=== PATIENT | male | born 1970 | race Caucasian/White ===

== ENCOUNTER 2018-10-03 16:42 | Emergency (ER) | payer MEDICARE, BC ==
[~2018-10-03] VITALS: Ht 182.9 cm; Wt 81.8 kg
[2018-10-03 16:49] VITALS: TEMP 97
[2018-10-03 20:38] VITALS: BP 118/68; PULSE 104
== END 2018-10-03 20:38 | disposition home or self-care (01) ==
LOC: COL.ER 16:42
DX: S83.92XA Sprain of unspecified site of left knee, initial encounter (principal); G40.909 Epilepsy, unspecified, not intractable, without status epilepticus; W19.XXXA Unspecified fall, initial encounter

== ENCOUNTER 2018-10-06 12:26 | Inpatient (IN) | payer MEDICARE, BC ==
[~2018-10-06] VITALS: Ht 182.9 cm; Wt 98.6 kg
[2018-10-06 13:48] LABS: ACETAMINOPHEN < 10 ug/mL (10-30); ALANINE AMINOTRANSFERASE 202 U/L (21-72); ALBUMIN 3.9 gm/dL (3.5-5.0); ALCOHOL(ethanol),MEDICAL < 10 mg/dL; ALKALINE PHOSPHATASE 140 U/L (50-136); ANION GAP 16 mmol/L (7-16); BILIRUBIN,TOTAL 0.5 mg/dL (0.0-1.0); BLOOD UREA NITROGEN 60 mg/dL (9-20); CALCIUM 8.9 mg/dL (8.4-10.2); CARBON DIOXIDE 19 mmol/L (22-30); CHLORIDE 104 mmol/L (98-107); CREATININE, serum 7.21 (0.66-1.25); GLUCOSE 133 mg/dL (74-106); POTASSIUM 4.5 mmol/L (3.4-5.0); SALICYLATE < 1.0 mg/dL; SODIUM 139 mmol/L (137-145); TOTAL PROTEIN 7.7 gm/dL (6.4-8.2)
[2018-10-06 14:03] LABS: PROLACTIN 11.6 ng/mL (3.7-17.9)
[2018-10-06] MEDS ORDERED: LAMICTAL 100MG100 MG PO ×3 (14:03→16:26)
[2018-10-06] MEDS ORDERED: PAXIL40 MG PO (14:04)
[2018-10-06] MEDS ORDERED: FLONASE NASAL S16 GM NS (14:04)
[2018-10-06] MEDS ORDERED: KEPPRA750 MG PO ×3 (14:04→16:10)
[2018-10-06] MEDS ORDERED: CARBATROL200 MG PO ×4 (14:04→16:09)
[2018-10-06 14:25] LABS: BASO % 0.3 % (0.0-2.0); EOS # 0.1 (0.0-0.7); EOS % 0.9 % (0-4.0); GRAN # 9.9 (1.4-6.5); GRAN % 85.2 % (42.2-75.2); HEMATOCRIT 39.7 % (42.0-52.0); HEMOGLOBIN 13.4 g/dl (13.5-18.0); LYMPH # 0.7 (1.2-3.4); LYMPH % 5.8 % (20.0-51.0); MEAN CELL VOLUME 96 fl (80.0-100.0); MEAN CORPUSCULAR HEMOGLOBIN 32 pg (27.0-31.0); MEAN CORPUSCULAR HGB CONC 34 g/dl (33.0-37.0); MEAN PLATELET VOLUME 9.2 fl (7.4-10.4); MONO # 0.9 (0.1-0.6); MONO % 7.4 % (1.7-9.3); PLATELET COUNT 277 K/mm3 (130-400); RED BLOOD COUNT 4.15 M/mm3 (4.20-5.60)
[2018-10-06] MEDS ORDERED: LAMICTAL150 MG PO (16:07)
[2018-10-06] MEDS ORDERED: CLARITIN 1010 MG/TAB PO (16:13)
--- NOTE | 2018-10-06 16:45 | NUR ---
Pt arrived to the floor from ER. Pt transfered from to his bed w/ on assist. Pt alert and oriented and c/o L knee pain. Pt and family oriented to , call light button, rm service, and bed button. Call light in reach.
[2018-10-06 17:06] VITALS: BP 143/81; PULSE 83; TEMP 98.3
[2018-10-06 17:39] LABS: PHOSPHOROUS 6.3 mg/dL (2.5-4.5)
[2018-10-06 17:49] LABS: COLLECTION METHOD CLEAN CATCH
[2018-10-06 18:10] LABS: TRICYCLIC ANTIDEPRESS URINE NEGATIVE
[2018-10-06 18:17] LABS: AMORPHOUS CRYSTAL Present /uL; MUCOUS Present /lpf; PH 5 (5-8); SQUAMOUS EPITHELIAL 0-2 /hpf; URINE APPEARANCE Hazy; URINE BACTERIA Rare /hpf; URINE BILIRUBIN Negative (NEGATIVE); URINE BLOOD 3+ (NEGATIVE); URINE COLOR Yellow; URINE GLUCOSE Negative (NEGATIVE); URINE KETONE Negative (NEGATIVE); URINE LEUKOCYTE ESTERASE Negative (NEGATIVE); URINE NITRATE Negative (NEGATIVE); URINE PROTEIN(semi-quant) 2+ (NEGATIVE); URINE UROBILINOGEN Negative (NEGATIVE)
[2018-10-06 18:20] LABS: URINE PROTEIN:CREAT RATIO 0.89 (0.00-0.14)
--- NOTE | 2018-10-06 18:28 | NUR ---
Pt finished dinner in bed and resting. No concern. Call light in reach. Pt's dad in visiting.
[2018-10-06 19:44] VITALS: BP 125/80; PULSE 80; TEMP 98.3
--- NOTE | 2018-10-06 20:22 | NUR ---
PT IN BED WITH HOB ELEVATED TO 45 DEGREE ANGLE. PT DENIES PAIN OR DISCOMFORT. PT HAS A HARD TIME ANSWERING, BUT DOES ANSWER QUESTIONS APPROPREATELY. PT HAS FAMILY BY SIDE. NO NEEDS AT THIS TIME, CALL LIGHT WITHIN REACH.
--- NOTE | 2018-10-06 20:45 | NUR ---
PT'S FAMILY ADVISES THAT PT HAS SEIZURES NORMALLY AT NIGHT THAT LAST ABOUT 8 TO 10 MINUTES. ALSO, HE HAS NOT HAD ONE FOR A COUPLE OF MONTHS.
[2018-10-06 23:38] VITALS: BP 127/66; PULSE 69; TEMP 98.2
[2018-10-06 23:44] VITALS: BP 139/83; PULSE 86; TEMP 98.1
[2018-10-07 03:31] VITALS: BP 135/82; PULSE 91; TEMP 98.4
--- NOTE | 2018-10-07 04:38 | NUR ---
UNEVENTFUL NIGHT, PT SLEEPING/RESTING WELL. PT DOES WAKE UP WHEN AWOKEN AND DENIES PAIN OR DISCOMFORT AND NO NEEDS. CALL LIGHT WITHIN REACH.
--- NOTE | 2018-10-07 07:28 | NUR ---
DR. ROLLE NOTIFIED OF CONSULT.
[2018-10-07 07:37] VITALS: BP 145/89; PULSE 98; TEMP 98.5
--- NOTE | 2018-10-07 07:39 | NUR ---
Received report, went to meet patient and he is observed to have eyes closed. Respirations are even and nonlabored. New bag NS administered. Mcclure is to dependent drain, some sediment is noted in tubing. Call light and personal belongings are within reach.
[2018-10-07 08:00] LABS: BASO % 0.4 % (0.0-2.0); EOS # 0.2 (0.0-0.7); EOS % 2.3 % (0-4.0); GRAN # 5.5 (1.4-6.5); GRAN % 77.1 % (42.2-75.2); LYMPH # 0.8 (1.2-3.4); LYMPH % 11.9 % (20.0-51.0); MEAN CELL VOLUME 96 fl (80.0-100.0); MEAN CORPUSCULAR HGB CONC 33 g/dl (33.0-37.0); MEAN PLATELET VOLUME 9.1 fl (7.4-10.4); MONO # 0.6 (0.1-0.6); MONO % 7.9 % (1.7-9.3); PLATELET COUNT 227 K/mm3 (130-400); RED BLOOD COUNT 3.49 M/mm3 (4.20-5.60); REDCELL DISTRIBUTION WIDTH-CV 13.2 % (11.5-14.5)
[2018-10-07 08:02] LABS: HEMATOCRIT 33.6 % (42.0-52.0); HEMOGLOBIN 11.1 g/dl (13.5-18.0); MEAN CORPUSCULAR HEMOGLOBIN 32 pg (27.0-31.0)
[2018-10-07 08:14] LABS: CALCIUM 7.9 mg/dL (8.4-10.2); MAGNESIUM 2.6 mg/dL (1.6-2.3); PHOSPHOROUS 6.1 mg/dL (2.5-4.5); POTASSIUM 4.3 mmol/L (3.4-5.0)
[2018-10-07 08:20] LABS: CREATININE, serum 7.42 (0.66-1.25)
[2018-10-07 11:14] VITALS: BP 143/87; PULSE 94; TEMP 98.9
--- NOTE | 2018-10-07 13:30 | NUR ---
Patient lives at home with his parents (Stephanie and Deandre) in [place], [place] and plans to discharge back home upon recovery. Patient has a development delay and receives support from his parents for daily activities as needed. Patient does not typically use durable medical equipment yet recently he has had recent knee pains. Patient's primary care physician is Dr. Hayder Yates, his pharmacy is [facility], and he does not have advance directives for healthcare on file at this time. food services manager will follow this patient as needed.
[2018-10-07 15:42] VITALS: BP 145/91; PULSE 89; TEMP 99.5
--- NOTE | 2018-10-07 18:52 | NUR ---
Patient in bed with head elevated watching TV. Parents are at bedside. Call light and personal items are within reach. Urine color is clearing. Dr. Price notified.
[2018-10-07 19:34] VITALS: BP 139/82; PULSE 95; TEMP 97.4
--- NOTE | 2018-10-07 20:00 | NUR ---
PT IN BED WITH HOB ELEVATED TO 45 DEGREE ANGLE. DENIES PAIN OR DISCOMFORT. PT'S URINE IS YELLOW WITH SOME SEDIMENT. PT HAS NO NEEDS AT THIS TIME, CALL LIGHT WITHIN REACH.
[2018-10-07 23:45] VITALS: BP 151/88; PULSE 104; TEMP 98.7
--- NOTE | 2018-10-08 02:50 | NUR ---
PT SLEEPING/RESTING WITH NO S/S OF PAIN OR DISCOMFORT NOTED. CALL LIGHT WITHIN REACH.
[2018-10-08 04:34] VITALS: BP 137/86; PULSE 105; TEMP 99.2
--- NOTE | 2018-10-08 05:44 | NUR ---
PT IN BED WITH HOB ELEVATED AT 45 DEGREE ANGLE. PT SLEEPING/RESTING, BUT EASILY AWAKENS AND GOES BACK TO SLEEP. PT DENIES PAIN OR DISCOMFORT OR ANY NEEDS. CALL LIGHT WITHIN REACH.
[2018-10-08 06:58] LABS: BASO % 0.4 % (0.0-2.0); EOS # 0.1 (0.0-0.7); EOS % 1.5 % (0-4.0); GRAN # 6.7 (1.4-6.5); GRAN % 81.3 % (42.2-75.2); HEMOGLOBIN 11.2 g/dl (13.5-18.0); LYMPH # 0.6 (1.2-3.4); LYMPH % 6.8 % (20.0-51.0); MEAN CELL VOLUME 95 fl (80.0-100.0); MEAN CORPUSCULAR HEMOGLOBIN 32 pg (27.0-31.0); MEAN CORPUSCULAR HGB CONC 34 g/dl (33.0-37.0); MEAN PLATELET VOLUME 9.1 fl (7.4-10.4); MONO # 0.8 (0.1-0.6); MONO % 9.6 % (1.7-9.3); PLATELET COUNT 250 K/mm3 (130-400); RED BLOOD COUNT 3.51 M/mm3 (4.20-5.60); REDCELL DISTRIBUTION WIDTH-CV 13.1 % (11.5-14.5)
[2018-10-08 07:02] LABS: HEMATOCRIT 33.3 % (42.0-52.0)
--- NOTE | 2018-10-08 07:04 | NUR ---
Received report, patient is resting in bed. Mcclure is to dependent drainage, respirations are even and nonlabored. Is currently having EEG at this time.
[2018-10-08 07:12] LABS: ALBUMIN 2.9 gm/dL (3.5-5.0); BILIRUBIN,TOTAL 0.4 mg/dL (0.0-1.0); CALCIUM 7.8 mg/dL (8.4-10.2); PHOSPHOROUS 5.6 mg/dL (2.5-4.5); TOTAL PROTEIN 6.1 gm/dL (6.4-8.2)
[2018-10-08 07:15] LABS: CREATININE, serum 7.81 (0.66-1.25)
[2018-10-08 07:25] LABS: CARBAMAZEPINE (TEGRETOL) 11.3 ug/mL (4.0-12.0)
[2018-10-08 08:09] VITALS: BP 145/85; PULSE 103; TEMP 100.2
--- NOTE | 2018-10-08 09:15 | NUR ---
Patient is very drowsy, mouth breathing and snoring. Father is concerned and states he never mouth breathes or snores. Spoke with provider and they were to visit patient. Dr. White saw patient and requested to speak with nephrology right away. Call placed to Dr. Price who spoke with Dr. White and Dr. Cabrera. Ativan decreased as it was felt as if she was overmedicated. Order placed for IV lasix and tylenol dose changed to be 12 hours apart.
[2018-10-08 12:16] VITALS: BP 144/94; PULSE 98; TEMP 98.3
--- NOTE | 2018-10-08 13:30 | NUR ---
Patient remains sleepy, respirations are even and non labored. Mcclure is to dependent drain, family remains at bedside. Has relaxed facial expression.
[2018-10-08 15:40] VITALS: BP 135/83; PULSE 91; TEMP 97.6
--- NOTE | 2018-10-08 18:34 | NUR ---
Patient is awake and alert now, did take medication and ate some pudding. Offered a pepsi. Urine output has greatly improved since IV lasix. Has no pain and no complaints. Mother remains at bedside. Call light and personal itmes are in reach.
[2018-10-08 20:03] VITALS: BP 138/86; PULSE 95; TEMP 98.4
[2018-10-09] VITALS (7 sets, daily range): BP systolic 123–166; BP diastolic 68–95; PULSE 86–107; TEMP 97.8–99.4
--- NOTE | 2018-10-09 00:15 | NUR ---
Patient assessed around 2009. Denies having pain and discomfort. Peripheral IV to right hand, NS running at 100 ml/hr. Site is without redness, warmth, swelling, and pain. Denies having SOB and dyspnea. On oxygen at 4 L/min via NC. LS CTA in upper lobes, diminished in lower. HRR. LS CTA. BSAx4. Indwelling alonso catheter patent, and draining clear yellow urine via dependent drainage. Scabbing to left knee. Site is without redness, warmth, swelling, drainage, and pain. 1+ edema BLE. Denies having any questsions, needs, or concerns. Call light within reach.
--- NOTE | 2018-10-09 02:49 | NUR ---
Patient has been resting in bed with eyes closed. Voices no needs or concerns. Call light is within reach. Indwelling alonso catheter continues to have clear yellow urine via dependent drainage.
--- NOTE | 2018-10-09 06:14 | NUR ---
Patient has been resting in bed, easily awakened throughout the night when checking on patient. NS continues to run at 100 mls/hr per orders. Denies having pain and discomfort. Indwelling alonso catheter draining yellow, cloudy urine via dependent drainage. Resting in bed with eyes closed at this time. Call light is within reach.
[2018-10-09 06:52] LABS: BASO % 0.3 % (0.0-2.0); EOS # 0.2 (0.0-0.7); EOS % 1.8 % (0-4.0); GRAN # 7.5 (1.4-6.5); GRAN % 80.4 % (42.2-75.2); HEMOGLOBIN 11.4 g/dl (13.5-18.0); LYMPH # 0.6 (1.2-3.4); LYMPH % 6.8 % (20.0-51.0); MEAN CELL VOLUME 96 fl (80.0-100.0); MEAN CORPUSCULAR HEMOGLOBIN 33 pg (27.0-31.0); MEAN CORPUSCULAR HGB CONC 34 g/dl (33.0-37.0); MEAN PLATELET VOLUME 9.1 fl (7.4-10.4); MONO # 0.9 (0.1-0.6); MONO % 9.7 % (1.7-9.3); PLATELET COUNT 262 K/mm3 (130-400); RED BLOOD COUNT 3.51 M/mm3 (4.20-5.60); REDCELL DISTRIBUTION WIDTH-CV 13.2 % (11.5-14.5)
[2018-10-09 06:55] LABS: BILIRUBIN,TOTAL 0.4 mg/dL (0.0-1.0); CALCIUM 8.3 mg/dL (8.4-10.2); POTASSIUM 3.9 mmol/L (3.4-5.0); TOTAL PROTEIN 6.4 gm/dL (6.4-8.2)
[2018-10-09 06:57] LABS: CREATININE, serum 7.53 (0.66-1.25)
--- NOTE | 2018-10-09 07:22 | NUR ---
Report given to day shift nurse.
[2018-10-09 07:25] LABS: HEMATOCRIT 33.7 % (42.0-52.0)
--- NOTE | 2018-10-09 10:19 | NUR ---
Assessment complete.patient awake,a/ox3.denies apin or discomfort at this time.breathing even and unlabored.bilat lungs bases diminished.upper lobes clear bilat.oxygen decreased from 4L/nc to 3L/NC.patient remains on seizure precautions.ivf infusing.alonso catheter draining adequately.family at bedside.rechecked temp was 97.8.no other needs voiced at this time.will continue to monitor.
[2018-10-09 14:51] LABS: LEVETIRACETAM 37.2 mcg/mL (())
--- NOTE | 2018-10-09 16:09 | NUR ---
FRAN met with the patient and patient's father, Deandre, to review discharge plan and discuss therapies recommendation of post-acute rehab. The patient's father reports that they are interested and agreeable to post-acute rehab. FRAN discussed options and presented the patient choice form to the patient's father. The patient's father preferred 1) [facility] 2) [facility]. Patient choice form signed by the patient's father and he was provided a copy. FRAN consulted IPR Director, Puja. FRAN contacted and faxed a referral to [facility]. SW awaiting their screenings.
--- NOTE | 2018-10-09 18:02 | NUR ---
PATIENT HAS HAD AN UNEVENTFUL DAY.PATIENT SITTING UP IN RECLINER AT THIS TIME.OXYGEN AT 4L/NC.PT HAD A DOSE OF LASIX TODAY.CONTINUES TO HAVE GOOD URINE OUTPUT.CREATININE STILL ELEVATED.DENIES FUTHER NEEDS AT THIS TIME.CALL LIGHT IN REACH
--- NOTE | 2018-10-09 18:56 | NUR ---
REPORT GIVEN TO TAMARA ESCOBAR.
--- NOTE | 2018-10-09 21:31 | NUR ---
Patient assessed around 1914. Was sitting up in recliner at that time. Denied having pain and discomfort. Peripheral INT to right hand flushed. Site without redness, warmth, swelling, and pain. On oxygen at 3 L/min via NC. Denied having SOB and dyspnea. LS diminished. HRR. BSAx4. Generalized edema. 1+ BUE, 2+ BLE. At approximately 1999, this nurse was called to patient room, parents stated that patient was having seizure activity. VS: 98.2 100 18 152/94 91% on 3 L/min via NC. Patient shaking. Pupils round, and react equally and immediately to light. Given IV Keppra per orders. At approximately 2014, patient was no longer shaking, but getting very sleepy. Transferred into bed with two assist with gait belt and walker. Assisted to laying position. Oxygn level 85%. Increased to 87%. Increased oxygen to 4 L/min via NC. Oxygen increased to 88%. VS: 176/96 113. Increased oxygen to 4.5 L/min via oxymask. VS at 2029: 98.0 92 18 161/96 94% on oxymask at 4.5 L/min via oxymask. RT notified. Resting in bed with eyes closed at this time. Call light is within reach.
[2018-10-10] VITALS (7 sets, daily range): BP systolic 130–144; BP diastolic 80–89; PULSE 67–101; TEMP 97.7–98.8
[2018-10-10 06:59] LABS: BASO % 0.4 % (0.0-2.0); EOS # 0.3 (0.0-0.7); EOS % 3.1 % (0-4.0); GRAN # 6.1 (1.4-6.5); GRAN % 75.3 % (42.2-75.2); LYMPH # 0.8 (1.2-3.4); LYMPH % 10.1 % (20.0-51.0); MEAN CELL VOLUME 96 fl (80.0-100.0); MEAN CORPUSCULAR HEMOGLOBIN 32 pg (27.0-31.0); MEAN CORPUSCULAR HGB CONC 34 g/dl (33.0-37.0); MEAN PLATELET VOLUME 9.1 fl (7.4-10.4); MONO # 0.8 (0.1-0.6); MONO % 10.2 % (1.7-9.3); PLATELET COUNT 297 K/mm3 (130-400); RED BLOOD COUNT 3.42 M/mm3 (4.20-5.60); REDCELL DISTRIBUTION WIDTH-CV 13.2 % (11.5-14.5)
[2018-10-10 07:09] LABS: HEMATOCRIT 32.7 % (42.0-52.0)
[2018-10-10 07:15] LABS: ALBUMIN 3.1 gm/dL (3.5-5.0); BILIRUBIN,TOTAL 0.4 mg/dL (0.0-1.0); CALCIUM 8.9 mg/dL (8.4-10.2); MAGNESIUM 2.1 mg/dL (1.6-2.3); PHOSPHOROUS 5.6 mg/dL (2.5-4.5); POTASSIUM 3.5 mmol/L (3.4-5.0); TOTAL PROTEIN 6.6 gm/dL (6.4-8.2)
[2018-10-10 07:16] LABS: CREATININE, serum 6.69 (0.66-1.25)
--- NOTE | 2018-10-10 08:16 | NUR ---
Assessment complete.patient awake,a/ox3.denies pain or discomfort at this time.breathing even and unlabored.Lung sounds diminished to bilat lung bases.oxygen at 4l/nc and sats at 95%.VSS.all meds given.patient has a alonso to dependent drainage.good urine output.creatinine trending down today.no other needs voiced at this time.will continue to monitor.call light in reach
--- NOTE | 2018-10-10 11:16 | NUR ---
[facility] reports acceptance; patients' second choice, awaiting IPR screen
--- NOTE | 2018-10-10 18:46 | NUR ---
PT RESTING IN BED AT THIS TIME.HALL CATHETER DISCONTINUED.OXYGEN REMAINS AT 4L/NC.FAMILY AT BEDSIDE.CALL LIGHT IN REACH
[2018-10-10 19:00] LABS: LEVETIRACETAM 106.7 mcg/mL (())
--- NOTE | 2018-10-10 19:25 | NUR ---
REPORT GIVEN TO TAMARA ELIZABETH.
--- NOTE | 2018-10-10 22:05 | NUR ---
Resting in recliner. Assessment complete. Lungs diminshed throughout. Denies shortness of breath. Heart sounds normal. Bowels active x4. Pulses strong throughout. Bilateral lower leg edema +1. Right hip bruising present. Denies pain at this time. Ambulated to restroom with walker and gait belt x1 assist. Denies other needs at this time. Call light in reach.
--- NOTE | 2018-10-10 23:37 | NUR ---
Resting in bed. Denies needs. Call light in reach.
--- NOTE | 2018-10-11 02:10 | NUR ---
Up to restroom and returned to bed. Denies other needs. Call light in reach.
[2018-10-11 03:28] VITALS: BP 161/82; PULSE 93; TEMP 97.5
--- NOTE | 2018-10-11 04:27 | NUR ---
Resting in bed. Denies needs. Call light in reach.
[2018-10-11 05:17] VITALS: BP 154/90
--- NOTE | 2018-10-11 06:58 | NUR ---
Patient had uneventful night. Resting in bed this AM. Report given to TAMARA Hoskins
[2018-10-11 07:23] VITALS: BP 135/76; PULSE 87; TEMP 97.6
[2018-10-11 07:32] LABS: BASO % 0.6 % (0.0-2.0); EOS # 0.4 (0.0-0.7); EOS % 6.6 % (0-4.0); GRAN # 4.7 (1.4-6.5); GRAN % 71.3 % (42.2-75.2); LYMPH # 0.7 (1.2-3.4); LYMPH % 10.1 % (20.0-51.0); MEAN CELL VOLUME 94 fl (80.0-100.0); MEAN CORPUSCULAR HEMOGLOBIN 32 pg (27.0-31.0); MEAN CORPUSCULAR HGB CONC 34 g/dl (33.0-37.0); MONO # 0.7 (0.1-0.6); MONO % 10.5 % (1.7-9.3); PLATELET COUNT 347 K/mm3 (130-400); RED BLOOD COUNT 3.42 M/mm3 (4.20-5.60)
[2018-10-11 07:38] LABS: HEMATOCRIT 32.1 % (42.0-52.0)
[2018-10-11 07:50] LABS: ALBUMIN 3.1 gm/dL (3.5-5.0); BILIRUBIN,TOTAL 0.5 mg/dL (0.0-1.0); MAGNESIUM 1.9 mg/dL (1.6-2.3); POTASSIUM 3.1 mmol/L (3.4-5.0); TOTAL PROTEIN 6.6 gm/dL (6.4-8.2)
[2018-10-11 08:05] LABS: CREATININE, serum 5.02 (0.66-1.25)
--- NOTE | 2018-10-11 08:19 | NUR ---
Assessment complete.patient awake,a/ox3.denies pain or discomfort at this time.breathing even and unlabored.oxygen at 4L/NC.pulses palpable,turner in equal,abd sounds present and audible.creatinine trending down.remains on seizure precautions.family at bedside.will continue to monitor.call light in reach
--- NOTE | 2018-10-11 11:15 | NUR ---
Puja, [facility] Director, reports that they can accept the patient. The patient is to discharge today, 10/11, to [facility] [facility]. SW updated Joe at [facility]. No additional needs at this time.
[2018-10-11] MEDS ORDERED: TEGRETOL 2200 MG/TA1 PO ×3 (11:19→11:20)
[2018-10-11] MEDS ORDERED: TYLENOL 325MG325 MG PO (11:19)
[2018-10-11] MEDS ORDERED: LAMICTAL 25MG T25 MG PO (11:21)
[2018-10-11] MEDS ORDERED: LAMICTAL200 MG PO (11:21)
[2018-10-11] MEDS ORDERED: ATIVAN 2MG/ML2 MG/ML IM (11:22)
[2018-10-11] MEDS ORDERED: KEPPRA 500MG500 MG PO (11:22)
--- NOTE | 2018-10-11 11:27 | NUR ---
AND TEAM ROUNDED ON PATIENT.PATIENT OKAY WITH TRANSFERING TO [facility]. THIS RN BEGAN WEANING PT OFF OXYGEN.AT 3 HE WAS 97%,AT 2 HE WAS 96-97%.AND AT 1L/NC HE WAS STABLE AT 96%.THIS RN TOOK PATIENT'S OXYGEN OFF AND SATS ARE 94-95% ON RA.WILL CONTINUE TO MONITOR OXYGEN.CALL LIGHT IN REACH
--- NOTE | 2018-10-11 12:21 | NUR ---
OXYGEN REMAIN STABLE AT 98% ON RA.PATIENT TO DISCHARGE TO INPATIENT REHAB.
[2018-10-11 12:40] VITALS: BP 133/77; PULSE 84; TEMP 98.6
--- NOTE | 2018-10-11 13:38 | NUR ---
REPORT GIVEN TO TAMARA DAVIS ON IPR.IV AND TELEMETRY DISCONTINUED.PATIENT WILL BE TRANSPORTED BY STAFF TO [facility] ON IPR.NO NEEDS VOICED AT THIS TIME.CALL LIGHT IN REACH
--- NOTE | 2018-10-11 13:40 | NUR ---
PT REMAINS ON ROOM AIR UPON DISCHARGE.DENIES SOB.SATS STABLE.
[2018-10-11] MEDS ORDERED: HEPARIN SOD5000 U/ML SQ (15:09)
[2018-10-11] MEDS ORDERED: FLONASEALLERGY NS (20:37)
[2018-10-11] MEDS ORDERED: MULTI VITAMINS1 TAB PO (20:38)
== END 2018-10-11 13:41 | DRG 682 ==
LOC: COL.ER 12:26 → MEDICAL 14:24
PROVIDERS: Emergency Medicine; Nurse Practitioner Family; Physician Assistant; Psychiatry & Neurology Neurology; ADMIT Family Medicine
DX: N17.9 Acute kidney failure, unspecified (principal); J96.01 Acute respiratory failure with hypoxia; M62.82 Rhabdomyolysis; G40.209 Localization-related (focal) (partial) symptomatic epilepsy and epileptic syndromes with complex partial seizures, not intractable, without status epilepticus; E87.2 Acidosis; E86.0 Dehydration; F42.9 Obsessive-compulsive disorder, unspecified; J30.1 Allergic rhinitis due to pollen; R62.50 Unspecified lack of expected normal physiological development in childhood; E83.39 Other disorders of phosphorus metabolism; E87.6 Hypokalemia; S83.005D Unspecified dislocation of left patella, subsequent encounter; W18.39XD Other fall on same level, subsequent encounter; E87.79 Other fluid overload
CPT/HCPCS: 99222-AI; 99232-AI; 99233-AI; 99239; J1644; J1940; J1953; J7030

== ENCOUNTER 2018-10-11 13:11 | Inpatient (IN) | payer MEDICARE, BC ==
[~2018-10-11] VITALS: Ht 182.9 cm; Wt 89.8 kg
[~2018-10-11 13:11] MED LIST: ATIVAN 2MG/ML2 MG/ML IM; CARBATROL200 MG PO; CLARITIN 1010 MG/TAB PO; FLONASE NASAL S16 GM NS; KEPPRA 500MG500 MG PO; KEPPRA750 MG PO; LAMICTAL 100MG100 MG PO; LAMICTAL 25MG T25 MG PO; LAMICTAL150 MG PO; LAMICTAL200 MG PO; PAXIL40 MG PO; TEGRETOL 2200 MG/TA1 PO; TYLENOL 325MG325 MG PO
--- NOTE | 2018-10-11 13:40 | NUR ---
Received report from [facility] RN.
--- NOTE | 2018-10-11 13:48 | NUR ---
OSCAR José aware of admission processed.
--- NOTE | 2018-10-11 14:37 | NUR ---
Greeted pt in [place] as OT brought over to IPR.
[2018-10-11] MEDS ORDERED: HEPARIN SOD5000 U/ML SQ (15:09)
--- NOTE | 2018-10-11 15:18 | NUR ---
Pt yousuf barker with walker with therapy
[2018-10-11 17:36] VITALS: BP 157/85; PULSE 81; TEMP 81
[2018-10-11 17:39] VITALS: BP 157/85; PULSE 80; TEMP 98.5
--- NOTE | 2018-10-11 19:45 | NUR ---
PT SITTING IN RECLINER. WATCHING BASEBALL ON TV WITH FATHER. PT PLEASANT CALM AND COOPERATIVE. SPEECH SL DIFFICULT TO UNDERSTAND. CALL LIGHT IN REACH. CHAIR ALARM ON. NO NEEDS AT THIS TIME.
--- NOTE | 2018-10-11 20:30 | NUR ---
Report to TAMARA Grossman. Pt's mom Stephanie was here this carlo, now his dad, Deandre here. Pt in recliner with feet up, call lt in reach, reviewed IPR POC and routine. Pt and parents verbalized understanding. Denied any needs at this time, denied pain.
[2018-10-11] MEDS ORDERED: FLONASEALLERGY NS (20:37)
[2018-10-11] MEDS ORDERED: MULTI VITAMINS1 TAB PO (20:38)
--- NOTE | 2018-10-11 23:57 | NUR ---
O2 SAT SPOT CHECK 90% ON RA. PLACED PT ON 1L O2 NC AND NOTIFIED RT.
[2018-10-12 04:49] VITALS: BP 137/79; PULSE 91; TEMP 98.1
[2018-10-12 07:13] LABS: ALBUMIN 2.9 gm/dL (3.5-5.0); BILIRUBIN,TOTAL 0.4 mg/dL (0.0-1.0); CALCIUM 9.1 mg/dL (8.4-10.2); CREATININE, serum 3.37 (0.66-1.25); MAGNESIUM 1.8 mg/dL (1.6-2.3); PHOSPHOROUS 3.9 mg/dL (2.5-4.5); POTASSIUM 3.5 mmol/L (3.4-5.0); TOTAL PROTEIN 6.3 gm/dL (6.4-8.2)
--- NOTE | 2018-10-12 08:12 | NUR ---
Assessment completed, alert/oriented and cooperative, vital signs have been stalbe/ HTN and physician is aware, denies pain this morning, sitting up in chair and finishing his breakfast, has taken his a.m. meds, I have taken him back off oxygen and sats 92-94% room air, he is going to work with PT at this time
--- NOTE | 2018-10-12 10:17 | NUR ---
Initial visit; Patient and his Dad thanked for looking in on Mark and wishing him well.
[2018-10-12 18:28] VITALS: BP 135/76; PULSE 85; TEMP 97.8
--- NOTE | 2018-10-12 19:00 | NUR ---
SHIFT REPORT OBTAINED FROM DAVIN GOODWIN. UNREMARKABLE DAY.
--- NOTE | 2018-10-12 19:15 | NUR ---
PT SITTING UP IN RECLINER WATCHING BASEBALL ON TV. CHEERFUL. DENIES NEEDS AT THIS TIME. CALL LIGHT IN REACH. CHAIR ALARM SET.
--- NOTE | 2018-10-12 20:45 | NUR ---
PARENTS HERE VISITING. VERY SUPPORTIVE. ASSISTED PT TO BR WITH WALKER. STRONGER BUT STILL UNSTEADY. NEEDS CUED FOR SAFETY AND USE OF WALKER. READY FOR BED. CALL LIGHT IN REACH. BED ALARM SET . SEIZURE PRECAUTIONS CONTINUED. NO SEIZURE ACTIVITY NOTED.
[2018-10-13 04:04] VITALS: BP 149/85; PULSE 90; TEMP 98.9
--- NOTE | 2018-10-13 05:54 | NUR ---
ASSISTED TO BR. DROWSY. SL UNSTEADY GAIT. NEEDED CUES FOR SAFETY. PLEASNAT AND COOPERATIVE. LLE +2 EDEMATOUS. PEDAL PULSES PRESENT. LT KNEE ABRASION/ LG SCABBED AREA CD&I. PLACED X2 LG BANDAIDS TO PROTECT SCABS. ENC PT TO ELEVATE LLE ESPECIALLY WHEN UP IN RECLINER TODAY. NOTED NO BM FOR SEVERAL DAYS. GAVE SENOKOT. SEE JUN.
--- NOTE | 2018-10-13 08:13 | NUR ---
Report from TAMARA Grossman. Pt ate breakfast in chair, glasses and yellow gripper socks in place. Denies pain. Oral cares brought to tray. Amb with walker and gait belt.
--- NOTE | 2018-10-13 10:09 | NUR ---
Pt attended group, family visiting.
--- NOTE | 2018-10-13 11:41 | NUR ---
Gave rehab cocktail
--- NOTE | 2018-10-13 14:56 | NUR ---
FRAN met with the patient and his mom Stephanie. The pt lives in [place] with his parents. The pt does not have DME and is independent with ADLs. The pt's PCP is Dr. Bee at [facility]. The pt receives his medications from [facility]. The pt does not have difficulties obtaining his medications. The pt does not have advanced directives in the EMR and was not interested in obtaining a DPOA-HC form at this time. The pt is to return home upon discharge. FRAN will continue to follow for discharge recommendations and assist if needed.
[2018-10-13 16:38] VITALS: BP 142/84; PULSE 87; TEMP 98.6
--- NOTE | 2018-10-13 17:38 | NUR ---
Pt denies pain, nor need to toilet, enc feet up in recliner, alarm on, call lt in reach, watching TV, glasses and yellow grippers in place.
--- NOTE | 2018-10-13 20:28 | NUR ---
Report to TAMARA Grossman.
--- NOTE | 2018-10-13 21:00 | NUR ---
PT SITTING IN RECLINER. WATCHING TV WITH FATHER. PT HAS LEARNING DISABILITY. PLEASANT AND COOPERATIVE BUT HAS NERVOUS AFFECT. SPEECH IS SOMRTIMES DIFFICULT TO UNDERSTAND. CGA TO BR WITH WALKER. VOIDED. WEARS PULL UPS FOR OCCASIONAL URINARY INCIONTINENCE. DENIES PAIN. READY FOR BED. CALL LIGHT IN REACH. BED ALARM SET.
[2018-10-14] VITALS (11 sets, daily range): BP systolic 124–153; BP diastolic 63–89; PULSE 81–100; TEMP 97.6–97.8
--- NOTE | 2018-10-14 05:27 | NUR ---
PT FOUND TO BE HAVING A GRAND MAL SEIZURE. LASTED APPROXIMATELY 2 MIN. BETO VILLATORO NOTIFIED. GAVE 1MG ATIVAN IM TO RT GLUT. VS INDICATE O2 SAT 76%. O2 STARTED AT 2L NC. SAT INCREASED TO 84%. O2 INCREASED TO 4L 87-90% PT WAKES TO VERBAL STIMULI. RT NOTIFIED. BETO VILLATORO NOTIFIED AGAIN OF LOW O2 SATS.
--- NOTE | 2018-10-14 05:47 | NUR ---
PT RESTING. O2 AT 4L. O2 SAT NOW 89-90%. OCCASIONALLY HAVE TO VERBALLY STIMULATE TO TAKE DEEP BREATH.
--- NOTE | 2018-10-14 05:50 | NUR ---
RT HERE. PLACE OXYMASK AT 5L. O2 SAT 91%. PT DENIES PAIN. NO FURTHER SEIZURES NOTED.
--- NOTE | 2018-10-14 06:02 | NUR ---
PT RESTING COMFORTABLY NOW. O2 OXYMASK AT 6L. O2 SAT 94%.
--- NOTE | 2018-10-14 06:30 | NUR ---
PT HAVING GRAND MAL SEIZURE AGAIN UPON THIS NURSES ARRIVAL INTO ROOM. O2 SAT DECREASED DOWN TO 84% ON 6L PER OXYMASK. INCREASED O2 TO 15L PER RT. O2 SAT INCREASED TO 87--88%. PT DIAPHORECTIC.
--- NOTE | 2018-10-14 06:35 | NUR ---
PT DROWSY BUT MORE ORIENTED. JUST HAVING SOME MILD GENERALIZED TREMORS. SEE VSS.
--- NOTE | 2018-10-14 06:35 | NUR ---
DR MCCARTNEY NOTIFIED. NEW ORDER FOR NEUROLGY CONSULT FOR DR ROLLE.
--- NOTE | 2018-10-14 06:40 | NUR ---
DR ROLLE NOTIFIED. NEW ORDERS RECEIVED.
--- NOTE | 2018-10-14 06:48 | NUR ---
Pt in bed supine with head at 45*, oxygen mask at 15L, SpO2 recovered just now to 90%, HRR in 90s, pt asked this nurse how was I upon entering room, pt could state name and , slightly clammy, color WNL, drowsy, pupils equal and mid-range, TAMARA Grossman on phone with providers. Remaining at bedside.
--- NOTE | 2018-10-14 07:00 | NUR ---
#20G IV STARTED TO LT HAND. NS STARTED AT 75CC/HR. LAB HERE. BEDSIDE REPORT GIVEN TO RYAN Lacy RN.
--- NOTE | 2018-10-14 07:16 | NUR ---
Queenie RT arrived at bedside at 0654, pt on oxymask at 15L. Lab called for stat orders and they have drawn blood. TAMARA Grossman started IV to L hand. thomas Sahuwarehouse supervisor 3rd shift arrived at 0710. This nurse phoned pt's mom, Stephanie at 0715 and informed of her his two seizures and course of treatment, she states they will come in. Updated pt, verbalizes understanding, turned O2 down to 12L at 96%.
--- NOTE | 2018-10-14 07:40 | NUR ---
Pt's O2 >92% on 10 L oxymask, drowsy, HOB at 45*, dad Deandre at bedside.
[2018-10-14 08:13] LABS: CALCIUM 9.3 mg/dL (8.4-10.2); CREATININE, serum 1.91 (0.66-1.25); MAGNESIUM 1.6 mg/dL (1.6-2.3); POTASSIUM 3.6 mmol/L (3.4-5.0)
--- NOTE | 2018-10-14 08:14 | NUR ---
Pt bedresting with eyes closed, even resps, dad out of room at this time.
--- NOTE | 2018-10-14 08:43 | NUR ---
Pt continent of urine, min assist for steadying as he stood and voided into urinal at bedside, returned to bed, HOB at 90* and took OJ and pudding. Dad at bedside
--- NOTE | 2018-10-14 12:11 | NUR ---
Pt and dad asleep. Will continue to monitor.
--- NOTE | 2018-10-14 15:11 | NUR ---
Pt amb to BR x2 with min assist, CGA with gait belt, cues to help manage IV tubing, walker. To chair this afternoon with BLE up, no more seizure activity observed, parents visiting throughout day. Pt denies pain or further needs. Slightly impaired more, cognitively, today.
--- NOTE | 2018-10-14 18:27 | NUR ---
Offered to asst pt to BR prior to shift change, accepted, toileted without riser, requested to stay up in chair longer to watch games on tv, feet elevated. Dad in room. Call lt in reach, chair alarm on. IVF to LH.
--- NOTE | 2018-10-14 19:30 | NUR ---
SEIZURE PRECAUTIONS CONTINUE.
--- NOTE | 2018-10-14 19:30 | NUR ---
PT ALERT, ORIENTED BUT THOUGHT PROCESS SL DELAYED. PT IN RECLINER. NO SEIZURE ACTIVITY NOTED. NO RESP DISTRESS. NS AT 75CC/HR TO LT HAND IV. CALL LIGHT IN REACH. CHAIR ALARM SET.
--- NOTE | 2018-10-14 20:15 | NUR ---
PT'S MOTHER IS HERE. PT WATCHING TV IN RECLINER. NO NEEDS A TTHHIS TIME.
--- NOTE | 2018-10-14 20:45 | NUR ---
MOTHER REPORTS PETIT MAL SEIZURE. GAVE HS DOSE OF SEIZURE MEDICATION AT THIS TIME. CHECK O2 SAT 90%. STARTED O2 2L NC. NOTIFIED RT. PT RELATES FEELS OK. WILL CONTINUE TO MONITOR.
--- NOTE | 2018-10-14 22:42 | NUR ---
PT RESTING. NO DISTRES.
--- NOTE | 2018-10-15 03:49 | NUR ---
NO FURTHER WITNESSED SEIZURES. PT STANDS AT BEDSIDE TO VOID PER URINAL. ALITTLE WEAK AND UNSTEADY. NEEDS CUING AT TIMES IN THE PROGRESSION OF TASKS.
[2018-10-15 05:08] VITALS: BP 126/71; PULSE 82; TEMP 98.6
[2018-10-15 06:51] LABS: CALCIUM 8.7 mg/dL (8.4-10.2); CREATININE, serum 1.57 (0.66-1.25); POTASSIUM 3.6 mmol/L (3.4-5.0)
[2018-10-15 16:13] VITALS: BP 107/52; PULSE 71; TEMP 98.9
[2018-10-15 16:18] VITALS: BP 144/85; PULSE 84; TEMP 98.4
--- NOTE | 2018-10-15 17:00 | NUR ---
Patient attended all therapies today. He had one small seizure when sitting in the recliner next to his father. It only lasted a few seconds. Patient's father reported that he gets seizures all the time, and this one was a normal one. No other seizures observed the rest of this day. Tolerated diet well this shift. Denies pain or questions at this time.
--- NOTE | 2018-10-15 21:45 | NUR ---
Patient awake and alert. Rests in bed and denies pain. HS meds all reviewed and given. Declines snack or needs.
--- NOTE | 2018-10-16 01:09 | NUR ---
Patient rests quietly in bed. Respirations with ease.
--- NOTE | 2018-10-16 02:40 | NUR ---
Patient rests quietly in bed. Respirations with ease.
[2018-10-16 02:53] VITALS: BP 133/80; PULSE 86; TEMP 98.5
--- NOTE | 2018-10-16 05:59 | NUR ---
Patient rests with eyes closed. Respirations with ease.
--- NOTE | 2018-10-16 08:52 | NUR ---
FRAN contacted the patient's mom, Stephanie to schedule a family meeting. Stephanie was agreeable to a meeting on Monday, 10/16 at 9:30AM.
[2018-10-16 16:58] VITALS: BP 151/85; PULSE 76; TEMP 98.1
--- NOTE | 2018-10-16 20:00 | NUR ---
Patient calls for assist up to the bathroom. Standby with gaitbelt. Gait mostly steady slightly hesitant. Manages all toileting tasks and sits up in recliner. Parents at bedside. Patient denies pain.
--- NOTE | 2018-10-16 20:25 | NUR ---
Patient attended all therapies today. He worked extra hard with Pepe this morning in rehab gym. Patient ate 100% of his meals today. Dad and mother stopped by multiple times today to visit. Patient denied questions or pain this shift.
--- NOTE | 2018-10-16 21:30 | NUR ---
HS meds all reviewed and given. Patient up to the bathroom then to bed. Bedalarm on for safety.
--- NOTE | 2018-10-16 23:45 | NUR ---
Up to the bathroom and back to bed.
[2018-10-17 03:31] VITALS: BP 125/72; PULSE 74; TEMP 98.2
--- NOTE | 2018-10-17 05:21 | NUR ---
Rests in bed with eyes closed. Respirations with ease.
--- NOTE | 2018-10-17 08:30 | NUR ---
Assisted patient to bathroom and back to chair. Patient gets up on his own and is steady with ambulation. Denies pain and nausea. No other changes at this time. Call light within reach.
--- NOTE | 2018-10-17 09:30 | NUR ---
A Family Conference was conducted with pt & pt's parents. Also present was PT, OT, SW, & Export Manager. Export Manager started by explaining the purpose of the meeting. The therapists explained how pt has been functioning & making good progress. Informed them of d/c scheduled for 10/19/18 w/ recommendations for outpatient PT, which parents were fine with. Pt's commented on how pleased they were with the progress pt made & how well he has been doing. They did ask questions which team answered.
[2018-10-17 10:13] LABS: LEVETIRACETAM 8.8 mcg/mL (())
[2018-10-17 13:51] VITALS: BP 132/74; PULSE 82; TEMP 98.6
--- NOTE | 2018-10-17 15:31 | NUR ---
FRAN met with the patient and his dad to review the team conference notes. The pt's target discharge date is 10/19 with outpatient physical therapy. The pt nor dad have any questions or concerns at this time. FRAN will continue to follow.
--- NOTE | 2018-10-17 17:56 | NUR ---
Patient has been sitting up in the chair most the day. He has family at bedside. No complaints of pain or nausea. No seizure activity noted today. No other changes at this time. Call light within reach.
--- NOTE | 2018-10-17 21:00 | NUR ---
ALTHOUGH PT MOD I IN ROOM. PT ENC TO USE CALL LIGHT IF GETTING UP THROUGH THE NIGHT FOR SAFETY. PT AGREED. SEIZURE PADS STILL ON BED RAILS.
--- NOTE | 2018-10-17 21:00 | NUR ---
PT SITTING UP IN RECLINER. WATCHIN BASEBALL ON TV. CHEERFUL. TREMORUS SPEECH BUT APPROPRIATE. MOD I IN ROOM. ENC PT TO CALL TO LET STAFF KNOW HE IS UP FOR SAFETY. PT AGREED. DENIES PAIN. REFUSED NEPHRO NUTRITIONAL DRINK. WANTED ICE CREAM. PT ABLE TO GET READY FOR BED PER SELF AND RETURN TO BED. NO DIFFICUTIES. SEIZURE PAD REMAIN ON SIDERAILS. PT READY FOR SLEEP. CALL LIGHT IN REACH.
[2018-10-18 05:18] VITALS: BP 127/77; PULSE 84; TEMP 97.5
--- NOTE | 2018-10-18 10:24 | NUR ---
Report from TAMARA Grossman. Pt manju independent in room, stressed importance to call for any needs, do not pick anything up off floor. Mom visiting, reviewed discharge plan for tomorrow.
--- NOTE | 2018-10-18 12:07 | NUR ---
Pt denies pain, mom visiting in , manju indep in rm.
[2018-10-18 16:13] VITALS: BP 120/77; PULSE 63; TEMP 97.8
--- NOTE | 2018-10-18 16:53 | NUR ---
Pt manju indep in rm, dad Deandre visiting, pt denies needing any more pull ups. In chair eating supper.
--- NOTE | 2018-10-18 20:00 | NUR ---
PT VISITING WITH MOTHER AT BEDSIDE. PT IN RECLINER AND DENIES PAIN OR DISCOMFORT. NO NEEDS AND CALL LIGHT WITHIN REACH.
--- NOTE | 2018-10-18 23:06 | NUR ---
PT IN BED RESTING, AND DENIES PAIN OR DISCOMFORT OR ANY NEEDS. CALL LIGHT WITHIN REACH.
--- NOTE | 2018-10-19 04:35 | NUR ---
PT SLEEPING/RESTING IN BED WITH NO S/S OF PAIN OR DISCOMFORT NOTED. CALL LIGHT WITHIN REACH.
[2018-10-19 05:00] VITALS: BP 127/88; PULSE 92; TEMP 98
--- NOTE | 2018-10-19 06:10 | NUR ---
PT ASLEEP IN BED AND EASILY AWAKENS WHEN I GO IN ROOM. PT DENIES PAIN OR DISCOMFORT AND NO NEEDS. PT SLEEP/RESTING AT THIS TIME, CALL LIGHT WITHIN REACH.
--- NOTE | 2018-10-19 07:07 | NUR ---
Report from TAMARA Beatty. Pt indep in room, reports he changed out of street clothes last night before bed and dressed himself independently this morning. Glasses and shoes in place, call lt in reach. Took meds with water.
[2018-10-19 07:14] LABS: ALBUMIN 3.5 gm/dL (3.5-5.0); BILIRUBIN,TOTAL 0.2 mg/dL (0.0-1.0); CALCIUM 9.1 mg/dL (8.4-10.2); CREATININE, serum 1.22 (0.66-1.25); MAGNESIUM 1.6 mg/dL (1.6-2.3); POTASSIUM 3.8 mmol/L (3.4-5.0); TOTAL PROTEIN 7.2 gm/dL (6.4-8.2)
--- NOTE | 2018-10-19 10:12 | NUR ---
Pt's parents arrived.
[2018-10-19] MEDS ORDERED: KEPPRA1000 MG PO (12:03)
[2018-10-19] MEDS ORDERED: MAG-OX 400400 MG/TAB PO (12:05)
--- NOTE | 2018-10-19 14:08 | NUR ---
Printed Pt health summary, discharge summary, and home med list and reviewed with pt and his dad, Deandre. Stressed importance of follow up appts and OP PT and labs. Faxed face sheet, order, and discharge summary including yesterday's PT notes to [facility], received "OK" fax receipts. 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 Belongings gathered by pt and family. Pt escourted by FERNANDO Reeves for ride home with dad. Pt and dad denied any questions.
== END 2018-10-19 14:05 | disposition home or self-care (01) | DRG 947 ==
PROVIDERS: Psychiatry & Neurology Neurology; ADMIT Internal Medicine
DX: R53.81 Other malaise (principal); J96.01 Acute respiratory failure with hypoxia; M62.82 Rhabdomyolysis; N17.9 Acute kidney failure, unspecified; S89.92XD Unspecified injury of left lower leg, subsequent encounter; E87.6 Hypokalemia; G40.909 Epilepsy, unspecified, not intractable, without status epilepticus; R74.0 Nonspecific elevation of levels of transaminase and lactic acid dehydrogenase [LDH]; F42.9 Obsessive-compulsive disorder, unspecified; E83.39 Other disorders of phosphorus metabolism; J30.2 Other seasonal allergic rhinitis; D72.829 Elevated white blood cell count, unspecified; R62.50 Unspecified lack of expected normal physiological development in childhood; S80.212A Abrasion, left knee, initial encounter; X58.XXXD Exposure to other specified factors, subsequent encounter; R41.82 Altered mental status, unspecified; Z79.02 Long term (current) use of antithrombotics/antiplatelets; Z79.01 Long term (current) use of anticoagulants
CPT/HCPCS: 99222-AI; 99232-AI; 99233-AI; 99239; J1644; J1953; J2060; J7030

== ENCOUNTER 2023-10-19 11:53 | Emergency (ER) | payer MEDICARE, BC ==
[~2023-10-19] VITALS: Ht 182.9 cm; Wt 96.8 kg
[~2023-10-19 11:53] MED LIST changes: +FLONASEALLERGY NS; +HEPARIN SOD5000 U/ML SQ; +KEPPRA1000 MG PO; +MAG-OX 400400 MG/TAB PO; +MULTI VITAMINS1 TAB PO
[2023-10-19 12:20] VITALS: TEMP 98.5
[2023-10-19 14:13] LABS: BASO # 0.1 K/mm3 (0.0-0.2); BASO % 1.3 % (0.0-2.0); EOS # 0.3 K/mm3 (0.0-0.7); EOS % 5.9 % (0.0-4.0); GRAN # 2.5 K/mm3 (1.4-6.5); GRAN % 53.4 % (42.2-75.2); HEMATOCRIT 43.3 % (42.0-52.0); HEMOGLOBIN 14.4 g/dl (13.5-18.0); LYMPH # 1.3 K/mm3 (1.2-3.4); LYMPH % 28.1 % (20.0-51.0); MEAN CELL VOLUME 100 fl (80.0-100.0); MEAN CORPUSCULAR HEMOGLOBIN 33 pg (27-31); MEAN CORPUSCULAR HGB CONC 33 g/dl (33.0-37.0); MEAN PLATELET VOLUME 8.4 fl (7.4-10.4); MONO # 0.5 K/mm3 (0.1-0.6); MONO % 11.1 % (1.7-9.3); PLATELET COUNT 276 K/mm3 (130-400); RED BLOOD COUNT 4.34 M/mm3 (4.20-5.60); REDCELL DISTRIBUTION WIDTH-CV 12.9 % (11.5-14.5)
[2023-10-19 14:23] LABS: ALANINE AMINOTRANSFERASE 11 U/L (0-55); ALKALINE PHOSPHATASE 184 U/L (40-150); ANION GAP 11 mmol/L (7-16); AST,SGOT 19 U/L (5-34); BILIRUBIN,TOTAL 0.3 mg/dL (0.2-1.2); BLOOD UREA NITROGEN 15 mg/dL (8-26); CALCIUM 10.4 mg/dL (8.4-10.2); CHLORIDE 102 mEq/L (98-107); CREATININE, serum 0.88 mg/dL (0.72-1.25); GLUCOSE 94 mg/dL (70-99); POTASSIUM 4.2 mEq/L (3.5-4.5); SODIUM 138 mEq/L (136-145); TOTAL PROTEIN 8.1 g/dl (6.2-8.1)
[2023-10-19 14:24] LABS: ALCOHOL(ethanol),MEDICAL < 10 mg/dL (0-10); SALICYLATE < 5.0 mg/dL (15.0-30.0)
[2023-10-19 14:28] LABS: PH 5.5 (5.0-8.5); URINE APPEARANCE CLEAR (CLEAR/HAZY); URINE BLOOD NEGATIVE (NEGATIVE); URINE COLOR Dark Yellow (YELLOW); URINE GLUCOSE NEGATIVE (NEGATIVE); URINE KETONE TRACE (NEGATIVE); URINE NITRATE NEGATIVE (NEGATIVE); URINE PROTEIN(semi-quant) 1+ (NEGATIVE)
[2023-10-19 14:36] LABS: TRICYCLIC ANTIDEPRESS URINE NEGATIVE (NEGATIVE)
[2023-10-19 15:00] VITALS: BP 115/89; PULSE 78
[2023-10-19 15:38] LABS: COLLECTION METHOD CLEAN CATCH
== END 2023-10-19 15:00 | disposition home or self-care (01) ==
LOC: COL.ER 11:53
PROVIDERS: Emergency Medicine
DX: T42.6X1A Poisoning by other antiepileptic and sedative-hypnotic drugs, accidental (unintentional), initial encounter (principal); G40.909 Epilepsy, unspecified, not intractable, without status epilepticus; Z79.899 Other long term (current) drug therapy